=== PATIENT | male | born 1945 | race Caucasian/White ===

== ENCOUNTER 2020-01-24 13:04 | Inpatient (IN) ==
[2020-01-24] MEDS ORDERED: Naloxone 0.4 MG/ML INJ IVP PRN (14:33)
[2020-01-24] MEDS ORDERED: *HR* OxyCODONE Immed Rel 5 MG TABLET PO PRN (16:31)
[2020-01-24] MEDS: *HR* HYDROcodone/Acet 5/325 mg TABLET PO PRN (19:10)
[2020-01-24] MEDS: *HR* Digoxin 0.125 MG TABLET PO SCH (20:39)
[2020-01-24] MEDS: Metoprolol XL (24 HR) Succ 50 MG TAB.ER.24H PO SCH (20:39)
[2020-01-24] MEDS: Apixaban 5 MG TABLET PO SCH (20:39)
[2020-01-25 02:45] LABS: Basophils % 0.5 %; Eosinophils # 0.1 K/mcL (0.0-0.6); Eosinophils % 1.7 %; Hematocrit 41.2 % (37.5-50.1); Hemoglobin 13.4 g/dL (12.9-16.9); Immature Granulocytes % 0.5 % (0-4); Lymphocytes # 2.4 K/mcL (0.6-4.6); Mean Corpuscular HGB Conc 32.5 g/dL (31.6-35.5); Mean Corpuscular Hemoglobin 32.5 pg (28.0-33.3); Mean Platelet Volume 10.7 fL (9.4-12.4); Monocytes # 0.9 K/mcL (0.0-1.3); Monocytes % 10.3 %; Neutrophils # 4.9 K/mcL (1.6-8.9); Platelet Count 216 K/mcL (140-400); Red Blood Count 4.12 M/mcL (4.19-5.50); Red Cell Distribution Width 13.8 % (11.5-14.5); White Blood Count 8.4 K/mcL (4.3-11.1)
[2020-01-25 03:06] LABS: BUN/Creatinine Ratio 16 (6-26); Blood Urea Nitrogen 15 mg/dL (8-23); Calcium 8.8 mg/dL (8.6-10.3); Carbon Dioxide 28 mEq/L (23-29); Chloride 103 mEq/L (98-107); Glucose 91 mg/dL (70-105); Osmolality,Calculated 284 (280-300); Potassium 4.2 mEq/L (3.5-5.1); Sodium 137 mEq/L (136-145); eGFR For African Americans > 60 (> 60); eGFR For Non-African Americans > 60 (> 60)
[2020-01-25] MEDS: *HR* HYDROcodone/Acet 5/325 mg TABLET PO PRN (08:36)
[2020-01-25] MEDS: Apixaban 5 MG TABLET PO SCH ×2 (08:36→20:37)
[2020-01-25] MEDS: Multivit/Ca/Min/Fe/FA 1 TAB TABLET PO SCH (08:36)
[2020-01-25] MEDS: Aspirin Enteric Coated 81 MG Tablet PO SCH (08:36)
[2020-01-25] MEDS: *HR* Digoxin 0.125 MG TABLET PO SCH (20:37)
[2020-01-25] MEDS: Metoprolol XL (24 HR) Succ 50 MG TAB.ER.24H PO SCH (20:38)
[2020-01-26 03:08] LABS: Hemoglobin 13.8 g/dL (12.9-16.9); Mean Corpuscular HGB Conc 33.7 g/dL (31.6-35.5); Mean Corpuscular Hemoglobin 33.8 pg (28.0-33.3); Mean Corpuscular Volume 100.5 fL (83.0-100.0); Mean Platelet Volume 10.8 fL (9.4-12.4); Platelet Count 212 K/mcL (140-400); Red Blood Count 4.08 M/mcL (4.19-5.50); Red Cell Distribution Width 13.6 % (11.5-14.5); White Blood Count 9.6 K/mcL (4.3-11.1)
[2020-01-26 03:27] LABS: BUN/Creatinine Ratio 18 (6-26); Blood Urea Nitrogen 18 mg/dL (8-23); Calcium 8.8 mg/dL (8.6-10.3); Carbon Dioxide 31 mEq/L (23-29); Chloride 101 mEq/L (98-107); Glucose 97 mg/dL (70-105); Osmolality,Calculated 284 (280-300); Sodium 136 mEq/L (136-145); eGFR For African Americans > 60 (> 60); eGFR For Non-African Americans > 60 (> 60)
[2020-01-26] MEDS ORDERED: Regadenoson 0.4 MG/5 ML SYRINGE IVP ONE (06:08)
[2020-01-26] MEDS ORDERED: Spironolactone 25 MG TABLET PO SCH (09:00)
[2020-01-26] MEDS ORDERED: lisinopriL 20 MG TABLET PO SCH (09:00)
[2020-01-26] MEDS: Multivit/Ca/Min/Fe/FA 1 TAB TABLET PO SCH (09:55)
[2020-01-26] MEDS: Apixaban 5 MG TABLET PO SCH (09:55)
[2020-01-26] MEDS: Aspirin Enteric Coated 81 MG Tablet PO SCH (09:55)
[2020-01-26] MEDS ORDERED: lisinopriL 5 MG TABLET PO SCH (10:00)
[2020-01-26 12:38] VITALS: BP 142/87
== END 2020-01-26 16:58 | disposition home or self-care (01) | DRG 281 ==
LOC: EMEROOARM 13:04 → 2ANU 13:04 → SUATTDRO 14:33 → 2ANU 15:26
PROVIDERS: ADMIT Internal Medicine; ATTEND Internal Medicine

== ENCOUNTER 2021-11-25 19:47 | Inpatient (IN) ==
[2021-11-25] MEDS ORDERED: Isovue-370 500 ML BOTTLE IVP ONE (20:21)
[2021-11-25] MEDS ORDERED: 0.9 % Sodium Chloride 1,000 ML IV ONE (20:22)
[2021-11-25] MEDS ORDERED: Morphine Sulfate 2 MG/ML SYRINGE IVP ONE (20:45)
[2021-11-25 21:19] LABS: Basophils % 0.1 %; Eosinophils # 0.1 K/mcL (0.0-0.6); Eosinophils % 0.4 %; Hemoglobin 12.8 g/dL (12.9-16.9); Immature Granulocytes % 0.6 % (0-4); Lymphocytes # 1.9 K/mcL (0.6-4.6); Lymphocytes % 11.6 %; Mean Corpuscular HGB Conc 32.8 g/dL (31.6-35.5); Mean Corpuscular Hemoglobin 32.8 pg (28.0-33.3); Mean Platelet Volume 10.6 fL (9.4-12.4); Monocytes # 1.4 K/mcL (0.0-1.3); Monocytes % 8.3 %; Neutrophils # 12.8 K/mcL (1.6-8.9); Platelet Count 196 K/mcL (140-400); Red Cell Distribution Width 13.2 % (11.5-14.5); White Blood Count 16.2 K/mcL (4.3-11.1)
[2021-11-25] MEDS ORDERED: Ketorolac 30 MG/ML VIAL IVP ONE (21:47)
[2021-11-25 21:51] LABS: Influenza A PCR Negative (Negative); Influenza B PCR Negative (Negative); Resp. Syncytial Virus PCR Negative (Negative)
[2021-11-25 21:52] LABS: SARS-CoV-2 by PCR (In House) Negative (Negative)
[2021-11-25] MEDS ORDERED: Clindamycin 900 MG/50 ML 900 MG/50 ML IV.SOLN IVPB ONE (22:59)
[2021-11-25] MEDS ORDERED: *HR* Digoxin 0.125 MG TABLET PO ONE (23:13)
[2021-11-25] MEDS ORDERED: lisinopriL 5 MG TABLET PO ONE (23:15)
[2021-11-25] MEDS: Melatonin 3 MG TABLET PO PRN (23:48)
[2021-11-26] MEDS ORDERED: *HR* OxyCODONE Immed Rel 5 MG TABLET PO PRN (00:01)
[2021-11-26] MEDS ORDERED: Acetaminophen 325 MG TABLET PO PRN (00:01)
[2021-11-26] MEDS ORDERED: *HR* HYDROcodone/Acet 5/325 mg TABLET PO PRN (00:01)
[2021-11-26] MEDS ORDERED: Naloxone 0.4 MG/ML INJ IVP PRN (00:01)
[2021-11-26 03:36] LABS: Hematocrit 37.3 % (37.5-50.1); Hemoglobin 12.1 g/dL (12.9-16.9); Mean Corpuscular HGB Conc 32.4 g/dL (31.6-35.5); Mean Corpuscular Hemoglobin 32.4 pg (28.0-33.3); Platelet Count 204 K/mcL (140-400); Red Blood Count 3.73 M/mcL (4.19-5.50); Red Cell Distribution Width 13.4 % (11.5-14.5); White Blood Count 15.2 K/mcL (4.3-11.1)
[2021-11-26 03:47] LABS: BUN/Creatinine Ratio 16 (6-26); Blood Urea Nitrogen 17 mg/dL (8-23); Calcium 8.6 mg/dL (8.6-10.3); Carbon Dioxide 27 mEq/L (23-29); Chloride 100 mEq/L (98-107); Chol/HDL Ratio 1.8 (0-4.9); Cholesterol 89 mg/dL (< 200); Glucose 183 mg/dL (70-105); HDL Cholesterol 50 mg/dL (40-59); LDL Cholesterol,Calculated 27 mg/dL (< 100); Magnesium 1.8 mg/dL (1.6-2.6); Osmolality,Calculated 284 (280-300); Phosphorous 2.2 mg/dL (2.7-4.5); Potassium 4.4 mEq/L (3.5-5.1); Sodium 134 mEq/L (136-145); Triglycerides 61 mg/dL (< 150); eGFR For African Americans > 60 (> 60); eGFR For Non-African Americans > 60 (> 60)
[2021-11-26] MEDS ORDERED: Dexamethasone Sodium Phos/PF 10 MG/ML VIAL IVP SCH (09:00)
[2021-11-26] MEDS ORDERED: Piperacillin/Tazobactam 3.375 GM in 0.9 % Sodium Chloride Mini Bag 100 ML IVPB SCH (09:30)
[2021-11-26] MEDS ORDERED: Clindamycin 900 MG/50 ML 900 MG/50 ML IV.SOLN IVPB SCH (11:00)
[2021-11-26] MEDS: Vancomycin 1,250 MG/262.5 ML IV.SOLN IVPB SCH (11:26)
[2021-11-26] MEDS: Piperacillin/Tazobactam 3.375 GM in 0.9 % Sodium Chloride Mini Bag 100 ML IVPB SCH ×2 (13:27→20:44)
[2021-11-26] MEDS: Chlorhexidine Rinse 15 ML MOUTHWASH MM SCH (20:43)
[2021-11-26] MEDS: Apixaban 5 MG TABLET PO SCH (20:44)
[2021-11-26] MEDS: Melatonin 3 MG TABLET PO PRN (20:44)
[2021-11-27] MEDS ORDERED: traZODone 50 MG TABLET PO ONE (02:44)
[2021-11-27] MEDS: Vancomycin 1,250 MG/262.5 ML IV.SOLN IVPB SCH (03:31)
[2021-11-27 05:50] LABS: Basophils % 0.1 %; Hematocrit 35.4 % (37.5-50.1); Hemoglobin 11.9 g/dL (12.9-16.9); Immature Granulocytes % 0.9 % (0-4); Lymphocytes # 0.7 K/mcL (0.6-4.6); Lymphocytes % 3.5 %; Mean Corpuscular HGB Conc 33.6 g/dL (31.6-35.5); Mean Corpuscular Hemoglobin 33.4 pg (28.0-33.3); Mean Corpuscular Volume 99.4 fL (83.0-100.0); Mean Platelet Volume 10.9 fL (9.4-12.4); Monocytes # 1.2 K/mcL (0.0-1.3); Monocytes % 6.3 %; Neutrophils # 17.6 K/mcL (1.6-8.9); Platelet Count 235 K/mcL (140-400); Red Blood Count 3.56 M/mcL (4.19-5.50); Red Cell Distribution Width 13.2 % (11.5-14.5); Segmented Neutrophils % 89.2 %; White Blood Count 19.8 K/mcL (4.3-11.1)
[2021-11-27] MEDS: Piperacillin/Tazobactam 3.375 GM in 0.9 % Sodium Chloride Mini Bag 100 ML IVPB SCH ×3 (06:04→20:20)
[2021-11-27 06:15] LABS: BUN/Creatinine Ratio 23 (6-26); Blood Urea Nitrogen 21 mg/dL (8-23); Calcium 8.2 mg/dL (8.6-10.3); Carbon Dioxide 25 mEq/L (23-29); Chloride 103 mEq/L (98-107); Glucose 132 mg/dL (70-105); Osmolality,Calculated 283 (280-300); Potassium 3.9 mEq/L (3.5-5.1); Sodium 134 mEq/L (136-145); eGFR For African Americans > 60 (> 60); eGFR For Non-African Americans > 60 (> 60)
[2021-11-27] MEDS ORDERED: Metoprolol XL (24 HR) Succ 50 MG TAB.ER.24H PO SCH (09:00)
[2021-11-27] MEDS: *HR* Digoxin 0.125 MG TABLET PO SCH (09:27)
[2021-11-27] MEDS: Aspirin Enteric Coated 81 MG Tablet PO SCH (09:27)
[2021-11-27] MEDS: Apixaban 5 MG TABLET PO SCH ×2 (09:27→20:21)
[2021-11-27] MEDS: lisinopriL 5 MG TABLET PO SCH (09:28)
[2021-11-27] MEDS: Chlorhexidine Rinse 15 ML MOUTHWASH MM SCH ×3 (09:37→20:21)
[2021-11-27] MEDS ORDERED: Vancomycin 1,250 MG/262.5 ML IV.SOLN IVPB SCH (15:00)
[2021-11-27] MEDS: Metoprolol XL (24 HR) Succ 50 MG TAB.ER.24H PO SCH (20:21)
[2021-11-27] MEDS ORDERED: traZODone 50 MG TABLET PO PRN (22:48)
[2021-11-28] MEDS ORDERED: Vancomycin 1,250 MG/262.5 ML IV.SOLN IVPB SCH (03:00)
[2021-11-28 05:45] LABS: Basophils % 0.2 %; Eosinophils # 0.1 K/mcL (0.0-0.6); Eosinophils % 0.3 %; Hematocrit 39.3 % (37.5-50.1); Hemoglobin 12.9 g/dL (12.9-16.9); Immature Granulocytes % 0.9 % (0-4); Lymphocytes # 1.9 K/mcL (0.6-4.6); Lymphocytes % 11.4 %; Mean Corpuscular HGB Conc 32.8 g/dL (31.6-35.5); Mean Corpuscular Hemoglobin 32.8 pg (28.0-33.3); Mean Platelet Volume 10.3 fL (9.4-12.4); Monocytes # 1.5 K/mcL (0.0-1.3); Monocytes % 9.3 %; Neutrophils # 12.8 K/mcL (1.6-8.9); Platelet Count 250 K/mcL (140-400); Red Blood Count 3.93 M/mcL (4.19-5.50); Red Cell Distribution Width 13.4 % (11.5-14.5); Segmented Neutrophils % 77.9 %; White Blood Count 16.4 K/mcL (4.3-11.1)
[2021-11-28] MEDS: Piperacillin/Tazobactam 3.375 GM in 0.9 % Sodium Chloride Mini Bag 100 ML IVPB SCH (05:58)
[2021-11-28] MEDS: Aspirin Enteric Coated 81 MG Tablet PO SCH (09:46)
[2021-11-28] MEDS: Chlorhexidine Rinse 15 ML MOUTHWASH MM SCH (09:46)
[2021-11-28] MEDS: *HR* Digoxin 0.125 MG TABLET PO SCH (09:46)
[2021-11-28] MEDS: lisinopriL 5 MG TABLET PO SCH (09:47)
[2021-11-28] MEDS: Metoprolol XL (24 HR) Succ 50 MG TAB.ER.24H PO SCH (09:47)
[2021-11-28] MEDS: Apixaban 5 MG TABLET PO SCH (09:47)
[2021-11-28 10:09] VITALS: BP 158/94; PULSE 68; TEMP 97.4; O2SAT 100
[2021-11-28 11:11] LABS: BUN/Creatinine Ratio 16 (6-26); Blood Urea Nitrogen 15 mg/dL (8-23); eGFR For African Americans > 60 (> 60); eGFR For Non-African Americans > 60 (> 60)
[2021-11-29] MEDS ORDERED: Vancomycin 1,250 MG/262.5 ML IV.SOLN IVPB SCH (06:00)
== END 2021-11-28 12:10 | disposition home or self-care (01) | DRG 872 ==
LOC: 3ANU 19:47 → EMEROOARM 19:47 → SUATTDRO 23:51 → 3ANU 11-26 00:54
PROVIDERS: ADMIT Family Medicine; ATTEND Registered Nurse